=== PATIENT | female | born 1945 | race Caucasian/White ===

== ENCOUNTER 2019-06-13 14:15 | Emergency (ER) | payer OTHER ==
[~2019-06-13] VITALS: Ht 154.9 cm; Wt 72.1 kg
[2019-06-13] MEDS ORDERED: SYNTHROID100 MCG PO (14:28)
== END 2019-06-13 21:26 | disposition home or self-care (01) ==
LOC: ER 14:15
DX: R10.31 Right lower quadrant pain (principal); R10.32 Left lower quadrant pain

== ENCOUNTER 2020-08-14 09:07 | Emergency (ER) | payer OTHER ==
[~2020-08-14] VITALS: Ht 154.9 cm; Wt 70.8 kg
[~2020-08-14 09:07] MED LIST: SYNTHROID100 MCG PO
[2020-08-14] MEDS ORDERED: LEVOXYL75 MCG (09:20)
[2020-08-14] MEDS ORDERED: SIMVASTATIN5 MG (09:20)
== END 2020-08-14 10:40 | disposition home or self-care (01) ==
LOC: ER 09:07
DX: S33.5XXA Sprain of ligaments of lumbar spine, initial encounter (principal); X50.0XXA Overexertion from strenuous movement or load, initial encounter; Y93.F2 Activity, caregiving, lifting; Y92.012 Bathroom of single-family (private) house as the place of occurrence of the external cause; Y99.8 Other external cause status

== ENCOUNTER 2020-08-24 08:37 | Outpatient (CLI) | payer OTHER ==
[~2020-08-24 08:37] MED LIST changes: +LEVOXYL75 MCG; +SIMVASTATIN5 MG
== END 2020-08-24 08:50 | disposition home or self-care (01) ==
LOC: RAD 08:37
PROVIDERS: ATTEND Physical Medicine & Rehabilitation
DX: S32.89XA Fracture of other parts of pelvis, initial encounter for closed fracture (principal); M54.5 Low back pain

== ENCOUNTER 2020-09-08 09:23 | Outpatient (CLI) | payer OTHER | END 2020-09-08 09:28 | disposition home or self-care (01) | LOC: SONOGRAMA 09:23 | PROVIDERS: ATTEND Physical Medicine & Rehabilitation | DX: D17.1 Benign lipomatous neoplasm of skin and subcutaneous tissue of trunk (principal) ==